=== PATIENT | female | born 2000 | race Hispanic/Latino ===

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

== ENCOUNTER 2023-03-15 20:36 | Emergency (ER) | payer SELFPAY ==
[~2023-03-15] VITALS: Ht 162.6 cm; Wt 85.4 kg
[2023-03-15 20:45] VITALS: BP 156/101
[2023-03-15 21:00] VITALS: BP 124/84
[2023-03-15 21:15] VITALS: BP 110/94
[2023-03-15 21:15] LABS: BASO% 0.5 % (0-3); EOS% 1.7 % (0-8); HEMATOCRIT 35.8 % (37.0-47.0); HEMOGLOBIN 11.8 g/dl (12.0-16.0); IMMATURE GRANULOCYTES 0.3 % (0.0-5.0); LYMPH% 42.3 % (15-41); MEAN CELL VOLUME 83.6 fL CALC (80.0-100.0); MEAN CORPUSCULAR HGB 27.6 pG CALC (26.0-32.0); MONO% 4.5 % (2-13); NEUT# 3.99 thou/uL (2.00-7.15); NEUT% 50.7 % (42-76); RED BLOOD COUNT 4.28 mill/uL (4.20-5.60); RED CELL DISTRI WIDTH 12.7 % (11.5-15.5)
[2023-03-15 21:30] VITALS: BP 107/53
[2023-03-15 21:45] VITALS: BP 102/52
[2023-03-15] MEDS ORDERED: ROBITUSSIN AC10 ML PO (21:50)
[2023-03-15 21:52] VITALS: BP 102/52
== END 2023-03-15 21:55 | disposition home or self-care (01) | DRG 153 ==
LOC: ED 20:36
PROVIDERS: Family Medicine
DX: J06.9 Acute upper respiratory infection, unspecified (principal); Z20.822 Contact with and (suspected) exposure to COVID-19

== ENCOUNTER 2023-04-12 20:40 | Emergency (ER) | payer SELFPAY ==
[~2023-04-12] VITALS: Ht 162.6 cm; Wt 180.0 kg
[~2023-04-12 20:40] MED LIST: ROBITUSSIN AC10 ML PO
[2023-04-12] MEDS ORDERED: BACTRIM DS1 TAB PO (21:09)
[2023-04-12 21:28] VITALS: BP 106/61
[2023-04-12 21:31] VITALS: BP 106/61
== END 2023-04-12 21:38 | disposition home or self-care (01) | DRG 607 ==
LOC: ED 20:40
DX: L73.9 Follicular disorder, unspecified (principal); L03.317 Cellulitis of buttock; E66.9 Obesity, unspecified